=== PATIENT | male | born 1990 | race Caucasian/White ===

== ENCOUNTER 2017-04-16 13:43 | Emergency (ER) | payer SELFPAY ==
[~2017-04-16] VITALS: Ht 185.4 cm; Wt 70.0 kg
[2017-04-16 13:44] VITALS: BP 118/69; PULSE 5; PULSE 65; RESP 16; TEMP 98.4; O2SAT 98
--- NOTE | 2017-04-16 14:35 | PD ---
HPI Chief Complaint: Eye Problems/Injury Time Seen by Provider: 14:09 Travel History International Travel<30 days: No Contact w/Intl Traveler<30days: No Traveled to known affect area: No History of Present Illness HPI 26 year old male with no significant health history presents to the ED for evaluation of blurred vision and moderate pain in his left eye after falling off a ladder into a branch that hit him directly in the right eye. Pt did not lose consciousness. He is mostly concerned about his blurred vision and describes it as "distorted." Denies recent illness. Pain does not radiate anywhere. He is up to date on his tetanus. No other symptoms to report. PFSH Past Medical History Medical History: Denies Significant Hx Social History Alcohol Use: No Tobacco Use: No Allergies-Medications (Allergen,Severity, Reaction): Coded Allergies: No Known Allergies (Verified Allergy, Unknown, 04/16/17) Reported Meds & Prescriptions Reported Meds & Active Scripts Active Nsacwebh-Uwwfkkgsw-Pkwfouqiyeoqr Opth Drops 3.5-10,000-0.1 Mg-Units-% Susp 1 Drop LEFT EYE QID Review of Systems Except as stated in HPI: all other systems reviewed are Neg Physical Exam Narrative GENERAL: Well nourished male pt ambulatory an in no acute distress SKIN: Warm and dry. HEAD: Normocephalic. No obvious trauma EYES: No scleral icterus. No injection or drainage. No foreign body. EOMI PERRL. No increased uptake on fluorosceine examination of the left eye. No obvious trauma NECK: Supple, trachea midline. No JVD or lymphadenopathy. CARDIOVASCULAR: Regular rate and rhythm without murmurs, gallops, or rubs. RESPIRATORY: Breath sounds equal bilaterally. No accessory muscle use. MUSCULOSKELETAL: No cyanosis, or edema. BACK: Nontender without obvious deformity. No CVA tenderness. Data Data Last Documented VS Vital Signs Date Time Temp Pulse Resp B/P (MAP) Pulse Ox O2 Delivery O2 Flow Rate FiO2 04/16/17 14:56 04/16/17 13:44 98.4 65 16 98 Room Air Orders Orders Ed Discharge Order (04/16/17 14:48) MDM Medical Decision Making Medical Screen Exam Complete: Yes Emergency Medical Condition: Yes Medical Record Reviewed: Yes Differential Diagnosis corneal abrasion vs lens trauma vs foreign body Narrative Course 26 year old male presents to the ED for evaluation following an injury sustained to his left eye. The pt appears well. I do not see any obvious trauma. Upon fluoroscien examination of the affected eye I do not see any significant uptake. Pt continues to report blurred and "distorted" vision. I do not see any obvious lens displacement or injury. I have discussed the pt with Dr. Nahid Fox's office and will send the patient there for further evaluation. They will see the patient as soon as he gets there today. Although I do not see any obvious injury, exam in the ED is limited. Pt will be discharged and instructed to go immediately to Dr. Fox's office. He agrees with this plan of care.. Diagnosis Primary Impression: Left eye trauma Qualified Codes: S05.92XA - Unspecified injury of left eye and orbit, initial encounter Additional Impression: Blurry vision, left eye Referrals: Luh Fox MD Patient Instructions: Corneal Abrasion (ED), General Instructions Additional Instructions: Do not rub your eye Follow-up with ophthalmology Return immediately with any acute worsening of symptoms Med/Other Pt SpecificInfo: No Change to Meds Disposition: 01 DISCHARGE HOME Condition: Stable Matilde Lee ALEXANDER Apr 16, 2017 14:35
[2017-04-16] MEDS ORDERED: NEOM0.1S4 LEFT EYE (15:31)
== END 2017-04-16 15:00 | disposition home or self-care (01) ==
LOC: NEPK 13:43
DX: S05.92XA Unspecified injury of left eye and orbit, initial encounter (principal); H53.8 Other visual disturbances; W11.XXXA Fall on and from ladder, initial encounter
CPT/HCPCS: 99283